=== PATIENT | female | born 1965 | race Caucasian/White ===

== ENCOUNTER 2024-01-23 12:27 | Emergency (ER) | payer BC, SELFPAY ==
[2024-01-23 12:58] VITALS: BP 149/75; PULSE 79; RESP 20; TEMP 36.8; O2SAT 100
--- NOTE | 2024-01-23 15:13 | W.ED.EXTPRO ---
HPI - Extremity Problem General: Chief complaint: Extremity Injury, Lower Stated complaint: left leg swelling and pain and knee popped Time Seen by Provider: 01/23/24 15:12 History of Present Illness: 58-year-old female comes in today with pain and discomfort to the left knee and lower leg for 4 weeks. Patient reports some difficulty with sleeping for the past few weeks due to increased pain and discomfort in her left knee. Patient reports today she had taken her 's to a doctor's appointment and then had gone down to get a cup of coffee from [employer] and while walking to get her coffee she felt a pop in her knee and since then has had increased pain and discomfort. After arriving home patient noted swelling to the left lower extremity which concerned her and brought her to the emergency room. Patient takes no routine medications. Patient denies any chronic medical problems. Patient does not routinely go to a physician. Review of Systems General: Reports: 10 or more systems reviewed and unremarkable except in HPI and below Musc: Reports: extremity pain and extremity swelling Physical Exam Const: COMMON NORMALS: alert HENMT: COMMON NORMALS: normocephalic HEAD & SCALP: normocephalic Neck/C-Spine: COMMON NORMALS: full ROM Resp: COMMON NORMALS: normal respiratory effort and clear to auscultation bilaterally AUSCULTATION: clear to auscultation bilaterally Cardio: COMMON NORMALS: regular rate and regular rhythm RATE: regular rate RHYTHM: regular rhythm GI: COMMON NORMALS: Soft to palpation and non-tender PALPATION: Yes Soft to palpation Back/Pelvis: COMMON NORMALS: thoracic and lumbar spine normal to inspection Extremity: LEFT LOWER EXTREMITY: Yes knee joint (Tenderness lateral knee joint) and Yes lower leg (Swelling of the left lower leg) Neuro: SENSORIUM/ORIENTATION: Yes alert Skin: COMMON NORMALS: turgor normal GENERAL SKIN EXAM: turgor normal Course Vital Signs: Vital signs: Vital Signs Temperature 98.2 F 01/23/24 12:58 Pulse Rate 81 01/23/24 15:22 Respiratory Rate 20 H 01/23/24 12:58 Blood Pressure 140/94 01/23/24 15:22 Pulse Oximetry 97 01/23/24 15:22 Oxygen Delivery Me thod Room Air 01/23/24 15:22 MDM - Extremity (Nontraumatic) Medical Decision Making 58-year-old female comes in today for complaints of left knee pain and swelling of the left lower leg. Patient appears nontoxic. Patient reports no falls or acute injuries. Patient does not have joint line tenderness of the left knee. Patient also has some swelling and mild redness to the left lower leg. Differential diagnosis includes not limited to Martínez's cyst, meniscal injury, sprain, osteoarthritis, piriformis syndrome. X-ray notes some mild degenerative changes. Ultrasound of the extremity noted no DVT or observable Martínez's cyst. Reviewed exam with patient and suspect possible a meniscal tear or some tendinitis. Patient be placed on celecoxib 200 mg twice a day for next 10 days. Patient was also recommended to use Zofran as needed for nausea due to the medication and acetaminophen for further pain relief. Recommended ice or heat for further pain control. Recommended follow-up with orthopedics for further evaluation and treatment as needed. Patient reports understanding and agreed with plan. Lab Data Radiology Impressions Knee X-Ray 01/23/24 15:17 Impression: Minimal spurring of the medial joint compartment and of the anterior superior patella. Kellgren-Vicente Classification: grade 1 (doubtful): doubtful joint space narrowing and possible osteophytic lipping All radiology interpretation(s) finalized by discharge Discharge Plan Discharge Patient Disposition: Home Clinical Impression: Knee pain, left Qualifiers: Chronicity: unspecified Qualified Code(s): M25.562 - Pain in left knee Condition: Stable Prescriptions: New celecoxib 200 mg capsule 200 mg PO BID Qty: 20 0RF ondansetron 4 mg tablet,disintegrating 4 mg PO Q8H PRN (Reason: nausea and vomiting) Qty: 10 0RF No Action amoxicillin-pot clavulanate 875-125 mg tablet 1 tab PO BID Qty: 20 0RF Discharge Orders: Discharge ED (Routine); Ordered 01/23/24 Ordered By: Kristian Dye Referrals: Trey Danielson DO [Primary Care Provider] - Discharge Diet: Usual diet Discharge Activity: Increase activity as tolerated Patient Instructions: Knee Pain (ED) Activity Restrictions/Additional Instructions: Activity as tolerated. Use ice or heat to help with pain. Take celecoxib 200 mg twice a day for pain relief. Use acetaminophen for further pain relief. Use Zofran as needed for nausea with pain medications. Case management will contact you regarding follow-up with orthopedist for further evaluation and treatment. Coding Level of Care Code ED [employer] Machine Operator for Brandyn Jason
--- NOTE | 2024-01-23 15:17 | US_ITS ---
WS: [id number] ULTRASOUND SOFT TISSUES posterior LEFT knee. HISTORY: posterior left knee, probable garcia's cyst COMPARISON: None available. TECHNIQUE: 2-D and color Doppler imaging is submitted. Ultrasound directed posterior to the LEFT knee at the area of pain. There is no abnormality identifie d by ultrasound. Normal appearance of the soft tissues. No fluid collections. US/US soft tissue/extremity [id number] IMPRESSION: Normal soft tissue ultrasound posterior LEFT knee.
--- NOTE | 2024-01-23 15:17 | USCV_ITS ---
Eliseo Santos Age: 58 Gender: F : 1965 Exam Date: 01/23/2024 15:57 Ordering Phys: Kristian Dye Technologist: TRAV [place] [facility] [place] LT LE Pain HISTORY: Lower extremity pain. PROCEDURES: Venous duplex imaging was performed in only the left lower extremity. The following venous structures were evaluated: common femoral vein, profunda vein, proximal portion of the greater saphenous vein, superficial femoral vein, and the popliteal vein. In addition, the posterior tibial and peroneal trunk were evaluated. Serial compression, augmentation maneuvers, and spectral Doppler flow evaluation were performed. FINDINGS: No evidence of DVT seen in any vessel visualized at this time. CONCLUSIONS No evidence of left lower extremity DVT. Jas Campo MD (Electronically Signed) Final Date: 23 January 2024 16:32 S
--- NOTE | 2024-01-23 15:17 | XR_ITS ---
WS: [id number] Left knee, 3 views, 01/23/2024 Clinical Data: knee pain Comparison: None. Findings: No fractures or dislocations are seen. There are small spurs of the medial femoral condyle and medial tibial plateau. The joint spaces are normal. The patella is intact with an anterior superior spur. T he soft tissues are unremarkable. XR/XR knee LT 3V* [id number] Impression: Minimal spurring of the medial joint compartment and of the anterior superior p atella. Kellgren-Vicente Classification: grade 1 (doubtful): doubtful joint space narr owing and possible osteophytic lipping
[2024-01-23 15:22] VITALS: BP 140/94; PULSE 81; O2SAT 97
[2024-01-23 16:31] VITALS: BP 121/83; PULSE 74; O2SAT 96
--- NOTE | 2024-01-24 13:21 | DCPLANNER ---
messaged ortho for er f/u
== END 2024-01-23 16:32 | disposition home or self-care (01) ==
PROVIDERS: Emergency Provider Nurse Practitioner Family; Family Provider Family Medicine; PCP Family Medicine
DX: M25.562 Pain in left knee (principal)
CPT/HCPCS: 73562; 76882; 93971; 99284